=== PATIENT | female | born 1995 | race Caucasian/White ===

== ENCOUNTER 2020-06-24 13:49 | Day surgery (SDC) | payer OTHER ==
[~2020-06-24] VITALS: Ht 157.5 cm; Wt 63.5 kg
[2020-06-24 14:07] VITALS: BP 128/85
[2020-06-24] MEDS ORDERED: LACTATED RINGERS 1,000 ML IV SCH (14:07)
[2020-06-24] MEDS ORDERED: GABA800T5 PO (14:09)
[2020-06-24] MEDS ORDERED: CHLORHEXIDINE 15 ML UDC MM ONE (14:30)
[2020-06-24 14:41] LABS: HCG UR SG 1.015 (1.003-1.030)
[2020-06-24] MEDS ORDERED: MISOPROSTOL 200 MCG TABLET ONE (14:50)
[2020-06-24] MEDS ORDERED: OXYTOCIN 10 UNITS/ML, 1ML ONE (14:50)
[2020-06-24] MEDS ORDERED: SILVER NITRATE STICK TP ONE (14:50)
[2020-06-24] MEDS ORDERED: METHYLERGONOVINE 0.2 MG/ML IM ONE (14:50)
[2020-06-24] MEDS ORDERED: DIAZEPAM 5 MG TABLET ONE (15:46)
[2020-06-24] MEDS ORDERED: SCOPOLAMINE 1MG PATCH TD ONE ×2 (15:46)
[2020-06-24] MEDS ORDERED: FENTANYL PF 100 MCG/2ML ONE (15:52)
[2020-06-24] MEDS ORDERED: MIDAZOLAM 1 MG/ML, 2ML ONE (15:52)
[2020-06-24] MEDS ORDERED: LIDOCAINE-MPF 1%, 2ML ONE (16:14)
[2020-06-24] MEDS ORDERED: KETOROLAC 30 MG/1 ML ONE (16:14)
[2020-06-24] MEDS ORDERED: CEFAZOLIN 1,000 MG ONE (16:39)
[2020-06-24] MEDS ORDERED: PROPOFOL 10 MG/ML, 20ML ONE (16:39)
[2020-06-24] MEDS ORDERED: DEXAMETHASONE 4 MG/ML, 1ML ONE (16:39)
[2020-06-24] MEDS ORDERED: ONDANSETRON 2MG/ML, 2ML ONE (16:39)
[2020-06-24] MEDS ORDERED: ACETAMINOPHEN 325 MG TABLET PO PRN (17:00)
[2020-06-24] MEDS ORDERED: ALBUTEROL SULFATE 2.5 MG/3 ML NPPB PRN (17:00)
[2020-06-24] MEDS ORDERED: PROMETHAZINE 25 MG/ML, 1ML IVPush PRN (17:00)
[2020-06-24] MEDS ORDERED: OXYcodone 5 MG/5 ML ORAL.SOL UDC PO PRN (17:00)
[2020-06-24] MEDS ORDERED: hydrALAzine 20 MG/ML, 1ML IV PRN (17:00)
[2020-06-24] MEDS ORDERED: MEPERIDINE/PF 25MG/0.5ML IVPush PRN (17:00)
[2020-06-24] MEDS ORDERED: LABETALOL 5MG/ML, 20ML IV PRN (17:00)
[2020-06-24] MEDS ORDERED: FENTANYL PF 100 MCG/2ML IV PRN (17:00)
[2020-06-24] MEDS ORDERED: LORazepam 2 MG/ML, 1ML IVPush PRN (17:00)
[2020-06-24] MEDS ORDERED: METHOCARBAMOL 1,000 MG in DEXTROSE 5% 100 ML IV PRN (17:00)
[2020-06-24] MEDS ORDERED: HYDROmorphone 1 MG/ML, 1ML INJ IVPush PRN (17:00)
== END 2020-06-24 18:50 | disposition home or self-care (01) ==
LOC: OR 13:49 → EDBD 16:00 → OR 18:50
PROVIDERS: ATTEND Obstetrics & Gynecology
DX: N93.8 Other specified abnormal uterine and vaginal bleeding (principal); D26.1 Other benign neoplasm of corpus uteri; N84.0 Polyp of corpus uteri; F17.210 Nicotine dependence, cigarettes, uncomplicated; Z98.890 Other specified postprocedural states; Z72.89 Other problems related to lifestyle; Z79.899 Other long term (current) drug therapy
CPT/HCPCS: 58120; 81025; 88305; J0690; J1100; J1885; J2250; J2405; J2704; J3010; J7120; J2210; J2590